=== PATIENT | female | born 1960 | race Caucasian/White ===

== ENCOUNTER 2025-07-25 05:09 | Observation (INO) | payer MEDICARE ==
[2025-07-25 05:52] LABS: #Basophils 0.05 10x3/uL (0.0-0.2); #Eosinophils 0.18 10x3/uL (0.0-0.5); #Monocytes 0.98 10x3/uL (0.0-1.1); #Neutrophils 7.88 10x3/uL (1.5-8.4); %Basophils 0.5 % (0.0-2.0); %Eosinophils 1.8 % (0.0-6.0); %Lymphocytes 9.6 % (18.0-47.0); %Monocytes 9.7 % (0.0-10.0); %Neutrophils 78.1 % (40.0-75.0); Hematocrit 30.2 % (34.9-44.5); Hemoglobin 9.6 g/dL (12.0-15.5); Mean Corpuscular Hemoglobin 29.4 pg (27.0-33.0); Mean Corpuscular Volume 92.4 fL (81.6-98.3); Platelet Count 209 10x3/uL (150-450); Red Blood Cell (RBC) Count 3.27 10x6/uL (3.90-5.03); White Blood Cell (WBC) Count 10.09 10x3/uL (3.5-10.5)
[2025-07-25 06:07] LABS: ALT (SGPT) 23 U/L (Less than 34); AST (SGOT) 34 U/L (11-34); Albumin 3.3 g/dL (3.1-4.5); Alkaline Phosphatase 86 U/L (40-110); Anion Gap 12 mmol/L (10-20); BUN (Urea Nitrogen) 33 mg/dL (9.8-20.1); Bilirubin, Total 0.3 mg/dL (0.3-1.2); Calc. Creatinine Clearance 0 mL/min (70-130); Calcium 8.3 mg/dL (7.8-10.44); Carbon Dioxide 24 mmol/L (23-31); Chloride 106 mmol/L (98-107); Globulin 2.3 g/dL (2.4-3.5); Glucose 104 mg/dL (80-115); Lipase 6 U/L (8-78); Potassium 4.7 mmol/L (3.5-5.1); Sodium 137 mmol/L (136-145)
[2025-07-25 06:15] LABS: Troponin I 0.020 ng/mL (< 0.028)
[2025-07-25 07:31] LABS: Troponin I 0.041 ng/mL (< 0.028)
[2025-07-25] MEDS ORDERED: Furosemide 40 MG (4 mL) VIAL ONE (08:00)
[2025-07-25] MEDS ORDERED: Ondansetron PF 4 MG/2 ML Vial IVP PRN (08:46)
[2025-07-25] MEDS ORDERED: Melatonin 3 MG TAB PO PRN (08:46)
[2025-07-25] MEDS ORDERED: Senokot S 8.6-50 MG TAB PO PRN (08:46)
[2025-07-25] MEDS ORDERED: Acetaminophen 325 MG TAB PO PRN (08:46)
[2025-07-25] MEDS ORDERED: Enoxaparin 30 MG (0.3 mL) SYRINGE SC SCH (09:00)
[2025-07-25] MEDS ORDERED: Electrolyte Replacement Protocol 1 EACH FS SCH (09:00)
[2025-07-25 09:40] VITALS: BMI 21.9
[2025-07-25 09:54] LABS: Troponin I 0.062 ng/mL (< 0.028)
[2025-07-25] MEDS ORDERED: Heparin 10,000 UNITS/ 10 ML VIAL SLOW IVP SCH (10:45)
[2025-07-25 12:13] LABS: Troponin I 0.058 ng/mL (< 0.028)
[2025-07-25] MEDS: Famotidine/PF 20 mg/2ml Vial SLOW IVP SCH (12:20)
[2025-07-25] MEDS: Famotidine 20 MG TAB PO SCH (12:22)
[2025-07-25] MEDS: Aspirin Chewable 81 MG TAB PO SCH (12:22)
[2025-07-25] MEDS: Acetaminophen/Codeine 30-300mg Tablet PO PRN (12:30)
[2025-07-25] MEDS ORDERED: clonazePAM 0.5 MG TAB PO PRN (13:16)
[2025-07-25] MEDS: HYDROcodone/Acetaminophen 7.5/325 mg Tablet PO PRN (14:48)
[2025-07-25] MEDS: Furosemide 20 MG (2 mL) VIAL SLOW IVP SCH (14:49)
[2025-07-25] MEDS: Carvedilol 6.25 MG TAB PO SCH (20:38)
[2025-07-25] MEDS: Apixaban 5 MG TAB PO SCH (20:38)
[2025-07-25] MEDS ORDERED: Carvedilol 6.25 MG TAB PO SCH (21:00)
[2025-07-26 04:22] LABS: #Basophils Less than 0.03 10x3/uL (0.0-0.2); #Eosinophils Less than 0.03 10x3/uL (0.0-0.5); #Monocytes 1.11 10x3/uL (0.0-1.1); #Neutrophils 7.68 10x3/uL (1.5-8.4); %Basophils 0.1 % (0.0-2.0); %Eosinophils 0.0 % (0.0-6.0); %Lymphocytes 10.8 % (18.0-47.0); %Monocytes 11.2 % (0.0-10.0); %Neutrophils 77.7 % (40.0-75.0); Hematocrit 31.0 % (34.9-44.5); Hemoglobin 10.0 g/dL (12.0-15.5); Mean Corpuscular Hemoglobin 29.1 pg (27.0-33.0); Mean Corpuscular Volume 90.1 fL (81.6-98.3); Platelet Count 201 10x3/uL (150-450); Red Blood Cell (RBC) Count 3.44 10x6/uL (3.90-5.03); White Blood Cell (WBC) Count 9.89 10x3/uL (3.5-10.5)
[2025-07-26 04:42] LABS: ALT (SGPT) 16 U/L (Less than 34); AST (SGOT) 16 U/L (11-34); Albumin 3.1 g/dL (3.1-4.5); Alkaline Phosphatase 75 U/L (40-110); Anion Gap 12 mmol/L (10-20); BUN (Urea Nitrogen) 42 mg/dL (9.8-20.1); Bilirubin, Total 0.3 mg/dL (0.3-1.2); Calc. Creatinine Clearance 27 mL/min (70-130); Calcium 8.8 mg/dL (7.8-10.44); Carbon Dioxide 25 mmol/L (23-31); Chloride 105 mmol/L (98-107); Globulin 2.7 g/dL (2.4-3.5); Glucose 107 mg/dL (80-115); Iron 22 ug/dL (50-170); Iron Binding Capacity, Total 229 mcg/dL (265-497); Potassium 4.7 mmol/L (3.5-5.1); Sodium 137 mmol/L (136-145)
[2025-07-26 05:03] LABS: Ferritin 118.77 ng/mL (10-291); Thyroid Stimulating Hormone 0.1266 uIU/mL (0.35-4.94)
[2025-07-26] MEDS: Levothyroxine 150 MCG TAB PO SCH (05:57)
[2025-07-26] MEDS ORDERED: Non-Formulary Medication 1 EACH (Linaclotide [Linzess] 145 MCG Capsule) PO SCH (07:30)
[2025-07-26] MEDS: Aspirin 325 MG TAB PO SCH (09:01)
[2025-07-26] MEDS: Gabapentin 300 MG CAP PO SCH (09:02)
[2025-07-26] MEDS: Famotidine 20 MG TAB PO SCH (09:02)
[2025-07-26] MEDS: Lisinopril 5 MG TAB PO SCH (09:02)
[2025-07-26] MEDS: Folic Acid 1 MG TAB PO SCH (09:03)
[2025-07-26] MEDS: PARoxetine 20 MG TAB PO SCH (09:03)
[2025-07-26] MEDS: BuPROPion XL 150 MG ER.TAB PO SCH (09:03)
[2025-07-26 14:49] VITALS: TEMP 97.8
[2025-07-26 14:51] VITALS: BP 130/70
[2025-07-27] MEDS ORDERED: Furosemide 20 MG (2 mL) VIAL SLOW IVP SCH (09:00)
== END 2025-07-26 12:07 | disposition home or self-care (01) ==
LOC: CSHERS 05:09 → CSHTELE 07:41
PROVIDERS: ADMIT Student in an Organized Health Care Education/Training Program; ATTEND Student in an Organized Health Care Education/Training Program
PROC: B24BZZZ Ultrasonography of Heart with Aorta (ICD-10-PCS; principal; 2025-07-25)
DX: I13.0 Hypertensive heart and chronic kidney disease with heart failure and stage 1 through stage 4 chronic kidney disease, or unspecified chronic kidney disease (principal); I50.33 Acute on chronic diastolic (congestive) heart failure; N18.9 Chronic kidney disease, unspecified; I21.A1 Myocardial infarction type 2; I73.9 Peripheral vascular disease, unspecified; E78.5 Hyperlipidemia, unspecified; E03.9 Hypothyroidism, unspecified; F41.9 Anxiety disorder, unspecified; F32.A Depression, unspecified; F17.210 Nicotine dependence, cigarettes, uncomplicated; G47.33 Obstructive sleep apnea (adult) (pediatric); G93.41 Metabolic encephalopathy; G47.00 Insomnia, unspecified; K21.9 Gastro-esophageal reflux disease without esophagitis; M47.817 Spondylosis without myelopathy or radiculopathy, lumbosacral region; Z98.51 Tubal ligation status; Z85.528 Personal history of other malignant neoplasm of kidney; Z98.890 Other specified postprocedural states; Z88.8 Allergy status to other drugs, medicaments and biological substances; Z88.0 Allergy status to penicillin; Z88.1 Allergy status to other antibiotic agents; Z79.890 Hormone replacement therapy; Z79.82 Long term (current) use of aspirin; Z79.01 Long term (current) use of anticoagulants; Z79.899 Other long term (current) drug therapy
CPT/HCPCS: 71045; 80053; 82728; 83540; 83550; 83690; 83880; 84484 ×2; 85025; 85379; 85730; 93005; 93306; 94640 ×3; 94760; 96374; 96376 ×2; 99285; G0378 ×3; J1940 ×3; 36415; 84443; 93010

== ENCOUNTER 2025-08-08 00:06 | Inpatient (IN) | payer MEDICARE ==
[2025-08-08 00:53] LABS: #Basophils 0.07 10x3/uL (0.0-0.2); #Eosinophils 0.27 10x3/uL (0.0-0.5); #Monocytes 0.96 10x3/uL (0.0-1.1); #Neutrophils 9.15 10x3/uL (1.5-8.4); %Basophils 0.6 % (0.0-2.0); %Eosinophils 2.2 % (0.0-6.0); %Lymphocytes 14.5 % (18.0-47.0); %Monocytes 7.8 % (0.0-10.0); %Neutrophils 74.3 % (40.0-75.0); Hematocrit 29.2 % (34.9-44.5); Hemoglobin 9.2 g/dL (12.0-15.5); Mean Corpuscular Hemoglobin 29.4 pg (27.0-33.0); Mean Corpuscular Volume 93.3 fL (81.6-98.3); Platelet Count 284 10x3/uL (150-450); Red Blood Cell (RBC) Count 3.13 10x6/uL (3.90-5.03); White Blood Cell (WBC) Count 12.30 10x3/uL (3.5-10.5)
[2025-08-08 01:05] LABS: ALT (SGPT) 67 U/L (Less than 34); AST (SGOT) 104 U/L (11-34); Albumin 3.4 g/dL (3.1-4.5); Alkaline Phosphatase 162 U/L (40-110); Anion Gap 14 mmol/L (10-20); BUN (Urea Nitrogen) 38 mg/dL (9.8-20.1); Bilirubin, Total 0.3 mg/dL (0.3-1.2); Calc. Creatinine Clearance 0 mL/min (70-130); Calcium 8.9 mg/dL (7.8-10.44); Carbon Dioxide 20 mmol/L (23-31); Chloride 110 mmol/L (98-107); Globulin 2.9 g/dL (2.4-3.5); Glucose 144 mg/dL (80-115); Potassium 4.4 mmol/L (3.5-5.1); Sodium 140 mmol/L (136-145)
[2025-08-08 01:12] LABS: Troponin I 0.017 ng/mL (< 0.028)
[2025-08-08] MEDS ORDERED: Cefepime 2 GM VIAL ONE (01:57)
[2025-08-08] MEDS ORDERED: Senokot S 8.6-50 MG TAB PO PRN (02:20)
[2025-08-08] MEDS ORDERED: Ondansetron PF 4 MG/2 ML Vial IVP PRN (02:20)
[2025-08-08] MEDS ORDERED: Acetaminophen 325 MG TAB PO PRN (02:20)
[2025-08-08] MEDS ORDERED: Calcium Carbonate 500 MG ChewTAB PO PRN (02:20)
[2025-08-08] MEDS ORDERED: Guaifenesin DM 100-10/5 ML UDCUP PO PRN (02:20)
[2025-08-08 02:55] LABS: #Basophils 0.03 10x3/uL (0.0-0.2); #Eosinophils 0.08 10x3/uL (0.0-0.5); #Monocytes 0.54 10x3/uL (0.0-1.1); #Neutrophils 11.60 10x3/uL (1.5-8.4); %Basophils 0.2 % (0.0-2.0); %Eosinophils 0.6 % (0.0-6.0); %Lymphocytes 5.1 % (18.0-47.0); %Monocytes 4.2 % (0.0-10.0); %Neutrophils 89.6 % (40.0-75.0); Hematocrit 28.8 % (34.9-44.5); Hemoglobin 9.2 g/dL (12.0-15.5); Mean Corpuscular Hemoglobin 29.7 pg (27.0-33.0); Mean Corpuscular Volume 92.9 fL (81.6-98.3); Platelet Count 244 10x3/uL (150-450); Red Blood Cell (RBC) Count 3.10 10x6/uL (3.90-5.03); White Blood Cell (WBC) Count 12.95 10x3/uL (3.5-10.5)
[2025-08-08 03:05] LABS: ALT (SGPT) 70 U/L (Less than 34); AST (SGOT) 97 U/L (11-34); Albumin 3.6 g/dL (3.1-4.5); Alkaline Phosphatase 182 U/L (40-110); Anion Gap 15 mmol/L (10-20); BUN (Urea Nitrogen) 38 mg/dL (9.8-20.1); Bilirubin, Total 0.4 mg/dL (0.3-1.2); Calc. Creatinine Clearance 0 mL/min (70-130); Calcium 9.2 mg/dL (7.8-10.44); Carbon Dioxide 21 mmol/L (23-31); Chloride 110 mmol/L (98-107); Globulin 3.0 g/dL (2.4-3.5); Glucose 97 mg/dL (80-115); Potassium 4.7 mmol/L (3.5-5.1); Sodium 141 mmol/L (136-145)
[2025-08-08 03:11] LABS: Troponin I 0.033 ng/mL (< 0.028)
[2025-08-08 03:27] LABS: Thyroid Stimulating Hormone 1.2264 uIU/mL (0.35-4.94)
[2025-08-08 03:36] VITALS: BMI 22.2
[2025-08-08 04:13] LABS: Free T4 (Free Thyroxine) 1.14 ng/dL (0.70-1.48)
[2025-08-08] MEDS: Nitroglycerin 2% Ointment 1 INCH/1 GM Packet TOP SCH (04:23)
[2025-08-08] MEDS: Furosemide 20 MG (2 mL) VIAL SLOW IVP SCH (04:23)
[2025-08-08 04:55] LABS: Influenza A by NAA Not Detected (NotDetected); Influenza B by NAA Not Detected (NotDetected); RSV by NAA Not Detected (NotDetected); SARS-CoV-2 NAA Rapid Test Not Detected (NotDetected)
[2025-08-08 05:44] LABS: Actual Bicarbonate (HCO3v) 19.2 mEq/L (22-28); Analyzer IN Cardio CS ER; Base Excess -7.3 mEq/L (-2 - +2); Calcium, Ionized (venous) 1.17 mmol/L (1.16-1.32); Chloride (VBG) 110 mmol/L (98-106); Hematocrit-VBG 32 % (36.0-47.0); Hemoglobin (Hb) 10.9 g/dL (11.7-16.1); Potassium (VBG) 4.97 mmol/L (3.70-5.30); Puncture Site Other Site; RapidComm Collect By Lab; Sodium 139 mmol/L (133-146)
[2025-08-08] MEDS ORDERED: Mometasone 200 MCG/Formoterol 5 MCG 60 PUFF INHALER INH SCH (06:30)
[2025-08-08] MEDS: Mometasone 100 MCG/PUFF (1 INHALER) INH SCH (07:29)
[2025-08-08] MEDS ORDERED: Non-Formulary Medication 1 EACH (Linaclotide [Linzess] 145 MCG Capsule) PO SCH (07:30)
[2025-08-08] MEDS: Furosemide 40 MG (4 mL) VIAL SLOW IVP SCH (08:13)
[2025-08-08] MEDS: Pantoprazole 40 MG VIAL IVP SCH (08:13)
[2025-08-08] MEDS: Isosorbide Mononitrate 30 MG ER.TAB.S PO SCH (08:13)
[2025-08-08] MEDS: Carvedilol 6.25 MG TAB PO SCH (08:14)
[2025-08-08] MEDS: Folic Acid 1 MG TAB PO SCH (08:14)
[2025-08-08] MEDS: Aspirin 81 mg Enteric Coated Tablet PO SCH (08:14)
[2025-08-08] MEDS ORDERED: Heparin 10,000 UNITS/ 10 ML VIAL SLOW IVP SCH (09:00)
[2025-08-08] MEDS ORDERED: Aspirin 325 MG TAB PO SCH (09:00)
[2025-08-08] MEDS ORDERED: Apixaban 5 MG TAB PO SCH (09:00)
[2025-08-08 09:31] LABS: Troponin I 0.041 ng/mL (< 0.028)
[2025-08-08] MEDS: Lisinopril 5 MG TAB PO SCH (09:44)
[2025-08-08] MEDS: BuPROPion XL 150 MG ER.TAB PO SCH (09:45)
[2025-08-08 11:06] LABS: Glucose, Urine (Dipstick) Normal (Negative); Leukocyte Negative (Negative); Protein, Urine (Dipstick) 30 mg/dl (Neg-Trace); Specific Gravity, Urine 1.015 (1.005-1.030)
[2025-08-08] MEDS: HYDROcodone/Acetaminophen 7.5/325 mg Tablet PO PRN (11:08)
[2025-08-08] MEDS: Methocarbamol 500 MG TAB PO PRN (11:12)
[2025-08-08 11:15] LABS: RBC/HPF 0-3 HPF (0-3); WBC/HPF 0-3 HPF (0-3)
[2025-08-08 11:16] LABS: Bacteria/HPF 1+ HPF (None Seen)
[2025-08-08 11:24] LABS: Legionella Urinary Ag Negative (Negative); Strep pneumo Urine Ag NEGATIVE (NEGATIVE)
[2025-08-08 15:17] LABS: Hep A IgM AB NONREACTIVE (NonReactive); Hep A IgM S/CO 0.22 S/CO (0-0.79); Hep B Core IgM Index 0.09 S/CO (0-0.79); Hep C IgG Ab NONREACTIVE S/CO (NonReactive); Hep C Index 0.17 S/CO (0-0.79)
[2025-08-08 15:54] LABS: Hep B Surf Ag NONREACTIVE S/CO (NonReactive)
[2025-08-08] MEDS: Carvedilol 12.5 MG TAB PO SCH (17:18)
[2025-08-08] MEDS: Apixaban 5 MG TAB PO SCH (22:33)
[2025-08-09 03:58] LABS: #Basophils Less than 0.03 10x3/uL (0.0-0.2); #Eosinophils Less than 0.03 10x3/uL (0.0-0.5); #Monocytes 0.86 10x3/uL (0.0-1.1); #Neutrophils 11.64 10x3/uL (1.5-8.4); %Basophils 0.1 % (0.0-2.0); %Eosinophils 0.0 % (0.0-6.0); %Lymphocytes 7.6 % (18.0-47.0); %Monocytes 6.3 % (0.0-10.0); %Neutrophils 85.3 % (40.0-75.0); Hematocrit 26.9 % (34.9-44.5); Hemoglobin 8.7 g/dL (12.0-15.5); Mean Corpuscular Hemoglobin 29.6 pg (27.0-33.0); Mean Corpuscular Volume 91.5 fL (81.6-98.3); Platelet Count 250 10x3/uL (150-450); Red Blood Cell (RBC) Count 2.94 10x6/uL (3.90-5.03); White Blood Cell (WBC) Count 13.63 10x3/uL (3.5-10.5)
[2025-08-09 04:23] LABS: ALT (SGPT) 40 U/L (Less than 34); AST (SGOT) 24 U/L (11-34); Albumin 3.0 g/dL (3.1-4.5); Alkaline Phosphatase 125 U/L (40-110); Anion Gap 14 mmol/L (10-20); BUN (Urea Nitrogen) 41 mg/dL (9.8-20.1); Bilirubin, Total 0.3 mg/dL (0.3-1.2); Calc. Creatinine Clearance 24 mL/min (70-130); Calcium 8.4 mg/dL (7.8-10.44); Carbon Dioxide 22 mmol/L (23-31); Chloride 109 mmol/L (98-107); Globulin 2.6 g/dL (2.4-3.5); Glucose 126 mg/dL (80-115); Potassium 4.7 mmol/L (3.5-5.1); Sodium 140 mmol/L (136-145)
[2025-08-09] MEDS: PARoxetine 20 MG TAB PO SCH (06:37)
[2025-08-09] MEDS: Furosemide 20 MG (2 mL) VIAL SLOW IVP SCH (08:00)
[2025-08-09] MEDS: Lisinopril 5 MG TAB PO SCH (08:00)
[2025-08-09] MEDS: BuPROPion XL 150 MG ER.TAB PO SCH (08:00)
[2025-08-09] MEDS: Apixaban 5 MG TAB PO SCH (08:01)
[2025-08-09] MEDS: Gabapentin 300 MG CAP PO SCH (08:01)
[2025-08-10 12:10] VITALS: BP 152/68; TEMP 97.5
== END 2025-08-10 13:40 | disposition home or self-care (01) | DRG 291 ==
LOC: CSHERS 00:06 → CSHICU 02:19 → CSHTELE 08-09 10:07
PROVIDERS: ADMIT Student in an Organized Health Care Education/Training Program; ATTEND Hospitalist
PROC: 3E03329 Introduction of Other Anti-infective into Peripheral Vein, Percutaneous Approach (ICD-10-PCS; principal; 2025-08-08)
PROC: 5A09357 Assistance with Respiratory Ventilation, Less than 24 Consecutive Hours, Continuous Positive Airway Pressure (ICD-10-PCS; 2025-08-08)
DX: I13.0 Hypertensive heart and chronic kidney disease with heart failure and stage 1 through stage 4 chronic kidney disease, or unspecified chronic kidney disease (principal); G93.41 Metabolic encephalopathy; I50.33 Acute on chronic diastolic (congestive) heart failure; J96.01 Acute respiratory failure with hypoxia; N18.4 Chronic kidney disease, stage 4 (severe); J44.1 Chronic obstructive pulmonary disease with (acute) exacerbation; R65.10 Systemic inflammatory response syndrome (SIRS) of non-infectious origin without acute organ dysfunction; N17.9 Acute kidney failure, unspecified; K81.0 Acute cholecystitis; I73.9 Peripheral vascular disease, unspecified; I25.10 Atherosclerotic heart disease of native coronary artery without angina pectoris; E03.9 Hypothyroidism, unspecified; K21.9 Gastro-esophageal reflux disease without esophagitis; G47.33 Obstructive sleep apnea (adult) (pediatric); F41.9 Anxiety disorder, unspecified; Z88.8 Allergy status to other drugs, medicaments and biological substances; Z88.0 Allergy status to penicillin; Z88.1 Allergy status to other antibiotic agents; Z88.5 Allergy status to narcotic agent; Z98.890 Other specified postprocedural states; Z79.01 Long term (current) use of anticoagulants; R74.8 Abnormal levels of other serum enzymes; I16.0 Hypertensive urgency; F32.A Depression, unspecified; G47.00 Insomnia, unspecified; E78.5 Hyperlipidemia, unspecified; Z98.51 Tubal ligation status; F17.210 Nicotine dependence, cigarettes, uncomplicated; D72.829 Elevated white blood cell count, unspecified; Z79.82 Long term (current) use of aspirin; Z79.899 Other long term (current) drug therapy; Z79.890 Hormone replacement therapy
CPT/HCPCS: 36415; 71045; 71250; 76705; 80053; 80074; 81001; 82805; 83605; 83880; 84145; 84439; 84443; 84484; 85025; 85730; 86140; 87040; 87449; 87637; 87899; 93005; 94760; J0692; J1644; J1940; J2470; J2919